=== PATIENT | female | born 1960 | race Caucasian/White ===

== ENCOUNTER 2024-04-05 08:06 | Emergency (ER) | payer OTHER, SELFPAY ==
[2024-04-05 08:20] VITALS: BP 156/101
[2024-04-05 08:50] LABS: % Basophils 0.9 % (0-2); % Eosinophils 3.9 % (0-6); % Immature Granulocytes 0.3 % (0-0.5); % Lymphocytes 10.7 % (20.5-51.1); % Neutrophils 72.2 % (42.2-75.2); Absolute Basophils 0.1 10^3/uL (0-0.2); Absolute Eosinophils 0.3 10^3/uL (0-0.7); Absolute Lymphocytes 0.8 10^3/uL (1.2-3.4); Absolute Monocytes 0.8 10^3/uL (0.1-0.6); Absolute Neutrophils 5.1 10^3/uL (1.4-6.5); Hemoglobin 14.8 g/dL (12.0-16.0); Mean Corp Hgb Conc. 34.4 g/dL (33.0-37.0); Mean Corpuscular Hgb 34.8 pg (27.0-31.0); Mean Corpuscular Volume 101.2 fL (81.0-99.0); Mean Platelet Volume 9.8 fL (7.4-10.4); Nucleated Red Blood Cells % 0 %; Platelet Count 209 10^3/uL (130-400); Red Blood Cell Count 4.25 10^6/uL (4.20-5.40); Red Cell Dist. Width 11.8 % (11.5-14.5)
[2024-04-05 10:42] VITALS: BP 155/99
[2024-04-05 11:10] VITALS: BMI 32.3
--- NOTE | 2024-04-05 11:24 | ED.GENMED ---
History of Present Illness
<Hakeem Keyes DO, Resident - Last Filed: 04/05/24 14:20>
General
Chief Complaint: Extremity Pain (non-traumatic)
Source: patient
Time Seen by Provider: 04/05/24 11:06
History of Present Illness
History of Present Illness:
63-year-old female with past medical history of chronic back pain, fractured right foot repaired in 2019, only taking Advil daily presents for right leg pain. Patient reports for nontraumatic pain, is localized to the right knee, as well as
radiating pain spreading down the back of the right leg. Patient reports this is chronic, has been afflicting her for approximately 2 weeks, she is treating it with oral Advil only. Patient reports no recent injury to the leg knee or spine.
Patient has seen orthopedics in the past, who treated her knee with injections. She also has seen her primary care physician who treated her sciatica with steroids. Patient reports back pain wakes her up at night, she denies any weight loss, no
night sweats, and no history of malignancy.
Past History
<Hakeem Keyes DO, Resident - Last Filed: 04/05/24 14:20>
Past History
ED Past Medical History: Other (Arthritis)
ED Past Surgical History: , Gynecological (D&C) and Orthopedic (Right foot plate and screws)
Social History
Tobacco: Non-smoker
Alcohol: None
Drug: None
Personal:
Living: with family
Employment: Employed
Review of Systems
<Hakeem Keyes DO, Resident - Last Filed: 04/05/24 14:20>
Review of Systems
Constitutional: Reports no symptoms
Respiratory: Reports no symptoms
Cardiac: Reports no symptoms
ABD/GI: Reports no symptoms
Musculoskeletal: Reports joint pain (Right knee) and back pain
Neurological: Reports no symptoms
Phy Exam
<Hakeem Keyes DO, Resident - Last Filed: 04/05/24 14:20>
General Physical Exam
General Presentation: well appearing and no apparent distress
General Skin: warm and dry
Cardiovascular Exam
Cardiovascular Exam: regular rate/rhythm, no edema and no murmur
Pulmonary Exam
Pulmonary Exam: lungs clear, no respiratory distress, no crackles and no wheezing
Gastrointestinal Exam
Gastrointestinal Exam: non tender, soft and non distended
Neurological Exam
Neurological Exam: alert, oriented x3 and no motor deficits (Full strength and sensation in the lower extremities bilaterally.)
Musculoskeletal Exam
Musculoskeletal Exam: full ROM (Patient has full range of motion in lower extremities bilaterally at the hip and knee. Full strength and sensation, full range of motion to passive and active.) and other (No paravertebral or spinal tenderness to
palpation. Right foot is tender to palpation.)
Course
<Hakeem Keyes DO, Resident - Last Filed: 04/05/24 14:20>
Orders/Labs/Results
Orders:
Orders
04/05/24 08:28
Complete Blood Count/With Diff Urgent
04/05/24 11:11
Comprehensive Metabolic Panel Urgent
04/05/24 11:57
Ketorolac [Toradol] 15 mg IV NOW STA
04/05/24 12:36
CR Knee - Right 1 Or 2 Views Urgent
Comment:
Reason For Exam: Right knee pain
04/05/24 13:31
Prednisone [Deltasone] 50 mg PO NOW STA
Abnormal Lab Results
04/05/24 04/05/24
08:28 11:11
MCV 101.2 H fL
(81.0-99.0)
MCH 34.8 H pg
(27.0-31.0)
Absolute Lymphs (auto) 0.8 L 10^3/uL
(1.2-3.4)
Absolute Monos (auto) 0.8 H 10^3/uL
(0.1-0.6)
Lymphocytes % 10.7 L %
(20.5-51.1)
Monocytes % 12.0 H %
(1.7-9.3)
Glucose 113 H mg/dl
(70-99)
AST 268 H U/L
(14-36)
ALT 71 H U/L
(0-35)
04/05/24 08:28
04/05/24 11:11
Vital Signs
Initial and Last Documented VS:
Initial Vital Signs
Temp Pulse Resp BP Pulse Ox
97.8 F 107 20 156/101 96
04/05/24 08:20 04/05/24 08:20 04/05/24 08:20 04/05/24 08:20 04/05/24 08:20
Last Documented Vital Signs
Temp Pulse Resp BP Pulse Ox
97.8 F 97 20 150/89 96
04/05/24 08:20 04/05/24 14:12 04/05/24 14:12 04/05/24 14:12 04/05/24 08:20
<David Hinojosa, DO - Last Filed: 04/05/24 13:53>
Orders/Labs/Results
Orders:
Orders
04/05/24 08:28
Complete Blood Count/With Diff Urgent
04/05/24 11:11
Comprehensive Metabolic Panel Urgent
04/05/24 11:57
Ketorolac [Toradol] 15 mg IV NOW STA
04/05/24 12:36
CR Knee - Right 1 Or 2 Views Urgent
Comment:
Reason For Exam: Right knee pain
04/05/24 13:31
Prednisone [Deltasone] 50 mg PO NOW STA
Abnormal Lab Results
04/05/24 04/05/24
08:28 11:11
MCV 101.2 H fL
(81.0-99.0)
MCH 34.8 H pg
(27.0-31.0)
Absolute Lymphs (auto) 0.8 L 10^3/uL
(1.2-3.4)
Absolute Monos (auto) 0.8 H 10^3/uL
(0.1-0.6)
Lymphocytes % 10.7 L %
(20.5-51.1)
Monocytes % 12.0 H %
(1.7-9.3)
Glucose 113 H mg/dl
(70-99)
AST 268 H U/L
(14-36)
ALT 71 H U/L
(0-35)
04/05/24 08:28
04/05/24 11:11
Vital Signs
Initial and Last Documented VS:
Initial Vital Signs
Temp Pulse Resp BP Pulse Ox
97.8 F 107 20 156/101 96
04/05/24 08:20 04/05/24 08:20 04/05/24 08:20 04/05/24 08:20 04/05/24 08:20
Last Documented Vital Signs
Temp Pulse Resp BP Pulse Ox
97.8 F 97 20 150/89 96
04/05/24 08:20 04/05/24 14:12 04/05/24 14:12 04/05/24 14:12 04/05/24 08:20
<Hakeem Keyes DO, Resident - Last Filed: 04/05/24 14:20>
MDM/Problems Addressed
Differential Diagnosis Includes:
Sciatica, acute on chronic osteoarthritis,
MDM/Problems Addressed:
63 female past history of chronic back pain presents for 2 weeks of worsening chronic right lower extremity pain
Patient reports she has been diagnosed with sciatica in the past and treated with prednisone
She also reports being diagnosed with OA of the right knee being treated with injections, was seen by orthopedic previously. Also had a previous right foot fracture which was repaired surgically 2019
Patient denies any trauma to the leg, patient able to bear weight on the leg. Patient does not use any ambulatory assist devices such as cane or walker at home
Worsening acute on chronic right leg pain, patient endorsing pain around the knee as well as right radiating pain shooting down the back of the right leg originating from the lower lumbar spine
Patient reports pain is severe, worse at night. Patient reports no vertebral tenderness, no night sweats, no weight loss and no history of malignancy
Pulses are +2 throughout lower extremity, leg is warm perfused well, good color. Patient denies any bowel or bladder incontinence, no numbness or paresthesias and no perianal numbness
Legs are equal in character, not erythematous, not swollen
Constellation of symptoms suspicious for acute on chronic osteoarthritis exacerbation and sciatica
Chemistry returned with kidney function at baseline, no CKD, symptomatic management with IV ketorolac
Initiated prednisone 50 mg p.o. will send patient home with prednisone taper
Patient reports never trying physical therapy for the knee or back, only the foot. Encourage follow-up with primary care physician and request of physical therapy prescription
<David Hinojosa DO - Last Filed: 04/05/24 13:53>
MDM/Problems Addressed
Differential Diagnosis Includes:
Sciatica, acute on chronic osteoarthritis, septic arthritis, arterial occlusion
<Hakeem Keyes DO, Resident - Last Filed: 04/05/24 14:20>
*Critical Care Note
Total Time (30-74mins, 75-104mins- exclusive of procedures): Not Applicable
<David Hinojosa DO - Last Filed: 04/05/24 13:53>
*Radiology
Radiology exam reviewed: all reviewed NAD by ED Provider
*Pulse Oximetry
Patient hypoxic: no
Data Reviewed
Source: patient and spouse (Spouse adds the pain was worse)
Prescriptions/Medications Considered But Not Given:
Consider antibiotics with no clear evidence of septic arthritis
ED Attending Note
<Hakeem Keyes DO, Resident - Last Filed: 04/05/24 14:20>
-
Portions of this chart may have been created with voice recognition software.� Occasional wrong word or��sound alike� substitutions may have occurred due to the inherent limitations of voice recognition software.
<David Hinojosa DO - Last Filed: 04/05/24 13:53>
ED Attending Note
Patient seen and examined by attending physician: Yes
I performed a history and physical exam of patient and discussed management with resident, I reviewed resident's note and agree with documented findings and plan of care.: Yes
ED Attending Note:
63-year-old female with a history of some knee issues that she has been seeing orthopedics about. She presents with 2-week history of pain in her right leg. She has had this persistent knee pain but now the pain is also from her buttocks to her
toes. She also has a history of sciatica. The patient reports the pain just got worse over the last few days. It has been persistent and not so brought her to the emergency department. No fevers. No numbness. No recent travel. No
discoloration.. Exam: Normal dorsalis and posterior tibial pulses on the right with warm and well-perfused foot. She does have chronic deformity to the right foot. Positive straight leg raise on the right. There is no joint effusion. There is
no redness. There is no abnormal temperature to palpation. She has normal motor function. Assessment and plan: Suspect lumbar radiculopathy but also has had this persistent knee issue. I think a trial of steroids will be beneficial. She has had
relief with that in the past for sciatica. I did recommend close outpatient orthopedic follow-up.
Discharge Plan
Departure
Patient Disposition: Home (Routine Discharge)
Date of Disposition: 04/05/24
Time of Disposition: 13:57
Patient with high blood pressure during this ER visit?: Yes
Condition: Good
Discharge Problem:
Sciatica, Osteoarthritis of right knee
Instructions: Muscle and Bone Pain (DC)
Prescriptions:
New
prednisone 10 mg Tablet
See Rx Instructions .ROUTE .COMPLEX Qty: 45 0RF
Rx Instructions:
Take By Mouth:
50 mg daily x3 days, 40 mg daily x3 days,
30 mg daily x3 days, 20 mg daily x3 days,
10 mg daily x3 days
hydrocodone-acetaminophen 5-325 mg tablet
2 tab PO Q6H PRN (Reason: Pain) Qty: 12 0RF
No Action
ibuprofen [Advil] 200 mg Tablet
200 mg PO TID
Referrals:
[facility] [Outside]
UNKNOWN - PT DOES,NOT KNOW [Family Provider] -
Activity Restrictions/Additional Instructions:
Please follow-up with your primary care physician, call in 1 to 3 days to schedule an appointment. If you do not have a physician, referral provided to the [facility] clinic
Please use prednisone taper as instructed. Instructions repeat here: Take 50 mg daily for 3 days by mouth, after take 40 mg daily for 3 days by mouth, after take 30 mg daily for 3 days by mouth, after take 20 mg daily by mouth for 3 days, after
take 10 mg daily by mouth for 3 days
We are prescribing you a short course of oral pain medications. Please do not drive after you take them. Use them as needed for pain.
Please return to the emergency department if your symptoms worsen, return or with any concerns.
Interventions
Interventions:
*Risk Screen - Suicide Last Done: 04/05/24 10:44
*General Assessment Last Done: 04/05/24 08:22
*Neglect/Abuse Screening Last Done: 04/05/24 08:22
ED- Fall Risk Assessment Last Done: 04/05/24 11:33
*ED COVID-19 Vaccine History Last Done: 04/05/24 08:22
*Nursing Disposition Last Done: 04/05/24 14:12
ED-Musculoskeletal Assessment Last Done: 04/05/24 10:44
ED-Peripheral Vascular Assessment Last Done: 04/05/24 10:44
ED-Skin Assessment Last Done: 04/05/24 10:44
Discharge Date and Time
Discharge Date/Time: 04/05/24 14:18
Print Language: MALIAN
[2024-04-05 11:47] LABS: ALT (SGPT) 71 U/L (0-35); AST (SGOT) 268 U/L (14-36); Albumin 4.1 g/dl (3.5-5.0); Alkaline Phosphatase 83 U/L (38-126); Blood Urea Nitrogen 10 mg/dl (7-17); Calcium 9.1 mg/dl (8.4-10.2); Carbon Dioxide 28 mmol/L (22-30); Chloride 100 mmol/L (98-107); Estimated Creatinine Clearance 110 ml/min; Glucose 113 mg/dl (70-99); Potassium 3.8 mmol/L (3.5-5.1); Sodium 137 mmol/L (135-145); Total Bilirubin 0.6 mg/dl (0.2-1.3); Total Protein 7.1 g/dl (6.3-8.2); eGFR > 60.00
[2024-04-05] MEDS: TORADOL 15 MG IV (12:10)
[2024-04-05] MEDS: DELTASONE 50 MG PO (14:07)
[2024-04-05 14:12] VITALS: BP 150/89
== END 2024-04-05 14:18 | disposition home or self-care (01) ==
LOC: EMR 08:06
PROVIDERS: EMERGENCY PHYSICIAN Emergency Medicine
DX: M17.11 Unilateral primary osteoarthritis, right knee (principal); M54.41 Lumbago with sciatica, right side; M79.604 Pain in right leg; G89.29 Other chronic pain; R03.0 Elevated blood-pressure reading, without diagnosis of hypertension
CPT/HCPCS: 99284; 96374; 73560; 80053; 85025

== ENCOUNTER → 2024-05-01 14:03 | Outpatient (REF) | payer OTHER, SELFPAY | LOC: RAD 14:03 | PROVIDERS: ATTENDING PHYSICIAN Family Medicine | DX: M54.41 Lumbago with sciatica, right side (principal); R74.8 Abnormal levels of other serum enzymes; I10 Essential (primary) hypertension | CPT/HCPCS: 72110 ==